=== PATIENT | male | born 1985 | race African-American/Black ===

== ENCOUNTER 2023-07-07 16:52 | Emergency (ER) | payer SELFPAY ==
[~2023-07-07] VITALS: Ht 177.8 cm; Wt 118.0 kg
[2023-07-07] MEDS ORDERED: METFORMIN HCL500 M2 PO (16:57)
[2023-07-07] MEDS ORDERED: LISINOPRIL2.5 MG PO (16:57)
[2023-07-07 17:13] LABS: EOSINOPHILS 3.1 % (0-6); HEMATOCRIT 44.5 % (35.0-50.0); HEMOGLOBIN 14.6 g/dL (12.0-18.0); LYMPHOCYTES 33.4 % (24-44); MCH 24.3 (27-36); MCHC 32.8 g/dl (30-36); MCV 74.2 fl (81-99); MONOCYTES 7.2 % (0-12); NEUTROPHILS 55.3 % (39-80); PLATELET COUNT 432 K/uL (140-440); RDW 13.8 (10.5-15.0)
[2023-07-07 17:31] LABS: ALBUMIN 4.2 g/dL (3.4-5.0); ANION GAP 13.9 (7-21); BILIRUBIN, TOTAL 0.3 ng/dL (0.2-1.0); BUN/CREATININE RATIO 10.09 (6.0-28.6); CALCIUM 9.5 mg/dL (8.5-10.1); CREATININE, SERUM 1.09 mg/dL (0.70-1.30); MAGNESIUM 1.9 mg/dL (1.8-2.4); POTASSIUM 3.9 mmol/L (3.5-5.1); PROTEIN, TOTAL 8.4 g/dL (6.4-8.2)
[2023-07-07 17:57] LABS: INFLUENZA B NAA NEGATIVE (NEGATIVE); RESPIRATORY SYNCYTIAL VIR NAA NEGATIVE (NEGATIVE)
[2023-07-07] MEDS ORDERED: PANTOPRAZOLE SO40 MG PO (19:06)
[2023-07-07 19:16] VITALS: BP 121/103
--- NOTE | 2023-07-08 12:17 | EKG ---
[facility] [address] [facility] [place], [place] [address] Signed Normal sinus rhythm Normal ECG No previous ECGs available Confirmed by ULISSES MCCLAIN MD ([id number]) on 07/08/2023 12:17:08 PM Electronically Signed By: ULISSES MCCLAIN 07/08/23 1217 PATIENT NAME: NAYLA RASMUSSENNing TRANG Electrocardiogram DATE OF : 85 PHYSICIAN: ULISSES MCCLAIN REPORT #: [id number] REPORT IS CONFIDENTIAL AND NOT TO BE RELEASED WITHOUT AUTHORIZATION
== END 2023-07-07 19:17 | disposition home or self-care (01) ==
LOC: ED 16:52
PROVIDERS: Internal Medicine
DX: K76.0 Fatty (change of) liver, not elsewhere classified (principal); I10 Essential (primary) hypertension; E11.9 Type 2 diabetes mellitus without complications; Z79.899 Other long term (current) drug therapy; Z79.84 Long term (current) use of oral hypoglycemic drugs; Z20.822 Contact with and (suspected) exposure to COVID-19
CPT/HCPCS: 36415; 71045; 76705; 80053; 83690; 83735; 84484; 85025; 87502; 93005; 93010; 96374; 96375; 99284-25; C9803; J1885; U0002